=== PATIENT | male | born 1980 | race Hispanic/Latino ===

== ENCOUNTER 2021-08-08 08:27 | Emergency (ER) | payer SELFPAY ==
[~2021-08-08] VITALS: Ht 167.6 cm; Wt 74.8 kg
== END 2021-08-08 09:50 | disposition home or self-care (01) ==
LOC: ER 09:45
DX: M54.41 Lumbago with sciatica, right side (principal); F17.210 Nicotine dependence, cigarettes, uncomplicated
CPT/HCPCS: 99282